=== PATIENT | female | born 1970 | race Caucasian/White ===

== ENCOUNTER 2017-02-26 06:17 | Emergency (ER) | payer OTHER ==
[~2017-02-26] VITALS: Ht 167.6 cm; Wt 122.5 kg
[2017-02-26] MEDS ORDERED: KETOROLAC 60 MG/2 ML VIAL. IM ONE (06:45)
--- NOTE | 2017-02-26 06:45 | ED.ADGEN ---
Adult General HPI HPI Patient is a 47-year-old woman, with a history of lower back pain, who presents to the emergency department with a complaint of right-sided lower back pain that began after she was cleaning her house yesterday. Patient denies any discrete injuries, stated that she felt soreness in her right lower back, radiating down into her right leg that began yesterday that has been getting progressively worse. Pain is exacerbated by movement, ambulation, flexion and extension at the hip, radiates down to the knee and sometimes to the ankle described as sharp and stabbing. Denies any weakness or numbness, no tingling, states that she took one of her 's tramadol at home last night around 5: 30 without relief. Patient denies any difficult is of bowel or bladder control, any urinary complaints, chest pain, shortness breath, any fevers, any chills. No recent travel, no history of drug use or sick contacts or exposures. No swelling extremities, no rashes, no other complaints at this time. Review of Systems Review of Systems Constitutional: Denies fever or chills [] Eyes: Denies change in visual acuity, redness, or eye pain [] HENT: Denies nasal congestion or sore throat [] Respiratory: Denies cough or shortness of breath [] Cardiovascular: No additional information not addressed in HPI [] GI: Denies abdominal pain, nausea, vomiting, bloody stools or diarrhea [] : Denies dysuria or hematuria [] Musculoskeletal: Right-sided back pain, radiating into the right buttock and right lower extremity. No joint pain. Integument: Denies rash or skin lesions [] Neurologic: Denies headache, focal weakness or sensory changes [] Endocrine: Denies polyuria or polydipsia [] Current Medications Current Medications Current Medications Medications (Trade) Dose Ordered Sig/Dagoberto Start Time Stop Time Status Last Admin Dose Admin Diazepam (Valium) 10 mg 1X ONCE 02/26/17 06:45 02/26/17 06:46 DC 02/26/17 06:58 10 MG Ketorolac Tromethamine (Toradol) 30 mg 1X ONCE 02/26/17 06:45 02/26/17 06:46 DC 02/26/17 06:58 30 MG Lidocaine (Lidoderm) 1 patch 1X ONCE 02/26/17 08:30 02/26/17 08:31 DC 02/26/17 08:30 1 PATCH Morphine Sulfate (Morphine 10mg Syringe) 10 mg 1X ONCE 02/26/17 08:30 02/26/17 08:31 DC 02/26/17 08:30 10 MG Allergies Allergies Allergies Coded Allergies Type Severity Reaction Last Updated Verified No Known Drug Allergies 02/26/17 No Physical Exam Physical Exam Constitutional: Well developed, well nourished, no acute distress, non-toxic appearance. [] HENT: Normocephalic, atraumatic, bilateral external ears normal, oropharynx moist, no oral exudates, nose normal. [] Eyes: PERRLA, EOMI, conjunctiva normal, no discharge. [] Neck: Normal range of motion, no tenderness, supple, no stridor. [] Cardiovascular:Heart rate regular rhythm, no murmur, S1, S2, no rubs or gallops. [] Lungs & Thorax: Bilateral breath sounds clear to auscultation, no wheezing, rhonchi, rales. No chest or crepitus or tenderness. [] Abdomen: Bowel sounds normal, soft, obese, no rebound, rigidity, no guarding, no tenderness, no masses, no pulsatile masses. [] Skin: Warm, dry, no erythema, no rash. [] Back: No midline tenderness, no step-offs or deformities, no lesions identified no CVA tenderness. Patient with tenderness palpation in the piriformis region, palpation reveals pain that radiates down the lateral aspect of the right lower extremity towards the knee.[] Extremities: No tenderness, no cyanosis, no clubbing, ROM intact, no edema. [] Neurologic: Alert and oriented X 3, normal motor function, normal sensory function, no focal deficits noted. [] Psychologic: Affect normal, judgement normal, mood normal. [] Current Patient Data Vital Signs Vital Signs Date Time Temp Pulse Resp B/P (MAP) Pulse Ox O2 Delivery O2 Flow Rate FiO2 02/26/17 09:00 16 97 02/26/17 08:30 Room Air 02/26/17 06:17 98.3 57 Lab Results Laboratory Tests Test 02/26/17 07:35 02/26/17 07:55 Urine Collection Type Unknown Urine Color Red Urine Clarity Bloody Urine pH 5.5 Urine Specific [place] >=1.030 Urine Protein >100 mg/dl (NEG-TRACE) Urine Glucose (UA) Neg mg/dL (NEG) Urine Ketones (Stick) Neg mg/dL (NEG) Urine Blood Large (NEG) Urine Nitrite Neg (NEG) Urine Bilirubin Neg (NEG) Urine Urobilinogen Dipstick 0.2 mg/dL (0.2 mg/dL) Urine Leukocyte Esterase Neg (NEG) Urine RBC Tntc /HPF (0-2) Urine WBC 5-10 /HPF (0-4) Urine Squamous Epithelial Cells Occ /LPF Urine Bacteria Few /HPF (0-FEW) POC Urine HCG, Qualitative hcg negative (Negative) EKG EKG Not indicated.[] Radiology/Procedures Radiology/[place] [address] IMAGING REPORT Signed PATIENT: OUMOU VALERO ACCOUNT: [id number] : 1970 LOCATION: ER AGE: 47 SEX: F EXAM STATUS: REG ER ORD. PHYSICIAN: MY TRUJILLO DO REASON: Low back pain PROCEDURE: LUMBAR SPINE 2-3V Lumbar spine, 3 views, 2017: History: Back pain radiating down the right leg The lumbar vertebral heights are well-maintained. The intervertebral disc spaces are well preserved. There is only minimal scattered marginal spurring. There are mild degenerative changes involving the facet joints bilaterally in the lower lumbar spine. The paraspinous soft tissues are unremarkable. IMPRESSION: 1. Mild degenerative change. 2. No acute lumbar spine abnormality is detected. DICTATED AND SIGNED BY: LOIDA JOHNSTON MD DATE: 02/26/17 0853 CC: MY TRUJILLO DO; SUNG ANGELES MD ~ Course & Med Decision Making Course & Med Decision Making Pertinent Labs and Imaging studies reviewed. (See chart for details) Patient states she has a history of "irritating the sciatic", which she states feels similar symptoms experiencing today. As stated denies any discrete injury , any concerning history or exposures. Patient's examination is consistent with sciatica with radiculopathy reproducible pain with palpation of the piriformis sending radiating pain down into the lateral aspect of the right lower extremity. Patient is currently on her menses, urinalysis is positive for blood, no evidence of nitrates, leuk esterase, with few bacteria noted. As stated she denies any urinary complaints. Patient received Toradol and Valium IM in the emergency department. On reevaluation she states her pain is "worse", states that after walking the bathroom the pain has been more persistent radiating down her leg. Patient with a normal neurologic examination as stated, she again denies any concerning risk factors or history. After discussion at bedside, will obtain x-ray of the lumbar spine, additionally treated with morphine injection. Patient's is now bedside. X-ray lumbar spine reveals evidence of degenerative changes, no evidence of fracture or other abnormalities. On reevaluation, patient now states her pain is a 2 out of 10, significantly improved. She is resting comfortably, does ambulate to the bathroom without difficulty although she states she does have some pain with motion. I did discuss patient's x-ray findings, use of heat, activity, patient written prescriptions for cyclobenzaprine and naproxen, also a short course of Percocet, to be used as directed, precautions and medication instructions reviewed patient at bedside. I did discuss with her concerning symptoms that would prompt return to the emergency department, and follow-up with her primary care provider for additional evaluation. Patient voiced understanding and agreement with plan as stated, discharged home in improved condition as stated above. Final Impression Final Impression [] Problems: Dragon Disclaimer Dragon Disclaimer This electronic medical record was generated, in whole or in part, using a voice recognition dictation system. Departure: Disposition: 01 HOME, SELF-CARE Condition: IMPROVED Scripts Oxycodone Hcl/Acetaminophen (PERCOCET 5-325 MG TABLET) 1 Each Tablet 1 TAB PO PRN Q6HRS Y for PAIN, #9 TAB Prov: MY TRUJILLO DO 02/26/17 Naproxen (NAPROSYN) 500 Mg Tablet 1 TAB PO PRN BID Y for MUSCLE PAIN, #10 TAB 1 Refill Prov: MY TRUJILLO DO 02/26/17 Cyclobenzaprine Hcl (CYCLOBENZAPRINE HCL) 10 Mg Tablet 1 TAB PO PRN TID Y for MUSCLE PAIN, #12 TAB Prov: MY TRUJILLO DO 02/26/17 MY TRUJILLO DO Feb 26, 2017 06:45
[2017-02-26] MEDS ORDERED: NAPR500T PO (06:56)
[2017-02-26] MEDS ORDERED: CYCL-331 PO (06:56)
[2017-02-26 08:05] LABS: BILIRUBIN,URINE NEG (NEG); CLARITY,URINE BLOODY; COLOR,URINE RED; GLUCOSE,URINE NEG (NEG)
[2017-02-26 08:06] LABS: BACTERIA,URINE FEW /HPF (0-FEW); NITRITE,URINE NEG (NEG); RBC,URINE TNTC /HPF (0-2); SQUAMOUS EPITHELIAL CELL,UR OCC /LPF; UROBILINOGEN,URINE 0.2 mg/dL (0.2 mg/dL)
[2017-02-26] MEDS ORDERED: MORPHINE SULFATE 10 MG/ML SYRINGE. IM ONE (08:30)
[2017-02-26] MEDS ORDERED: LIDOCAINE (700MG/PATCH) PATCH. TD ONE (08:30)
--- NOTE | 2017-02-26 08:57 | RAD ---
Lumbar spine, 3 views, 2016: History: Back pain radiating down the right leg The lumbar vertebral heights are well-maintained. The intervertebral disc spaces are well preserved. There is only minimal scattered marginal spurring. There are mild degenerative changes involving the facet joints bilaterally in the lower lumbar spine. The paraspinous soft tissues are unremarkable. IMPRESSION: 1. Mild degenerative change. 2. No acute lumbar spine abnormality is detected.
[2017-02-26 09:00] VITALS: BP 145/67
[2017-02-26] MEDS ORDERED: OXYC-323 PO (09:07)
== END 2017-02-26 09:19 | disposition home or self-care (01) ==
LOC: ER 06:17
DX: M54.41 Lumbago with sciatica, right side (principal); M54.16 Radiculopathy, lumbar region
CPT/HCPCS: 72100; 81001; 81025; 96372; 99285; J1885; J2270